=== PATIENT | male | born 1960 | race African-American/Black ===

== ENCOUNTER 2020-06-04 14:29 | Emergency (ER) | payer OTHER, SELFPAY ==
[2020-06-04] VITALS (12 sets, daily range): BP systolic 87–135; BP diastolic 63–82; PULSE 81–91; RESP 15–83; TEMP 36.3; O2SAT 96–98
--- NOTE | ~2020-06-04 | CT_ITS ---
EXAMINATION: CTA brain carotid EXAM DATE: 06/04/2020 16:27 INDICATION: Altered mental status, slurred speech. Left facial and neck pain. TECHNIQUE: Noncontrast head CT. Spiral CTA of the carotid arteries was performed with intravenous i njection 100 cc of Omnipaque 350. Axial, coronal, sagittal reformatted images reviewed. Additional r eformatted images created on dedicated 3-D workstation. NASCET comparable standard used to assess th e degree of arterial stenosis. Spiral CT angiogram cerebral arteries performed with the same intrave nous injection of contrast. Source images of the brain CTA transferred to dedicated workstation for 3 -D rotational image creation. Coronal, sagittal maximum intensity pixel images also reviewed. The d ose-length product (DLP) for this examination was 1887.57 mGy-cm. The exposure was tailored accordi ng to patient size, and iterative reconstruction (ASIR) was used as additional dose reduction techniq ue. Comparison is made to prior examination from 10/10/2015. FINDINGS: There is large amount of right carotid bulb plaque with the lumen narrowed to approximately 1.3 mm, 70% stenosis. On the left there is minimal atherosclerosis with 0% stenosis. Mild bilateral siphon arterial sclerosis. There is left-sided posterior communicating artery dominant posterior cere bral artery. Left vertebral artery is dominant with the right vertebral artery appears to end in post erior inferior cerebellar artery. There is no carotid or vertebral basilar arterial dissection or fi bromuscular dysplasia. There are no cerebral artery aneurysms. 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 The sagittal, transverse and sigmoid sinuses enhance normally, no venous sinus thrombosis. Internal cerebral veins also enhance normally. There is no acute intraparenchymal hemorrhage. No evidence of intraparenchymal brain mass lesion. N o evidence of acute infarction. There is no mass effect or midline shift. There is no obstructive hyd rocephalus suspected. There are no extra-axial collections. There are no calvarial acute fractures. Mild right maxillary sinus mucoperiosteal thickening. Mild to moderate cervical arthropathy. IMPRESSION: 1. No acute carotid or intracranial findings. 2. Right carotid bulb 70% stenosis. 3. Left carotid bulb 0% stenosis. 4. No left facial or cervical abnormality identified. Reviewed, dictated and finalized at [facility]
[2020-06-04 14:43] LABS: Glucose Point of Care 99 (65-105)
--- NOTE | 2020-06-04 14:44 | ECG_ITS ---
Measurements Intervals [place] Rate: 88 P: 35 FL: 180 QRS: -2 QRSD: 78 T: 18 QT: 325 QTc: 394 Interpretive Statements SINUS RHYTHM BORDERLINE T WAVE ABNORMALITY- DIFFUSE LEADS BASELINE ARTIFACT- I, II, III BORDERLINE ECG Electronically Signed On 06-04-2020 15:24:25 [employer] by Warren Faith D.O.
--- NOTE | 2020-06-04 14:44 | ED.GENADULT ---
HPI - General Adult General Chief complaint: Weakness Stated complaint: Confusion, lethargic Time Seen by Provider: 06/04/20 14:35 Source: patient History of Present Illness HPI narrative: Patient is a 60 y/o male complaining of falling asleep and possibly passing out. He states that he left home around 11:00 AM to go to work and he was fine at that time. He felt sleepy and tried to toe puller and called his . His states that he sound confused and his speech sound slurred over the phone. She also states that sometimes he would stopping talking over the phone suggesting possibly becoming unresponsive. He eventually stopped at a gas station. states that she picked him up and brought him to the hospital. She states that he had trouble getting out of the vehicle and walk. He was stumbling. Currently he feels well and his speech is clear. He also has some left sided neck pain when he first woke up this morning. He is on Aspirin and Brilinta for history for stents. Related Data Home Medications Medication Instructions Recorded Confirmed Brilinta 90 mg PO DAILY 06/04/20 06/04/20 amlodipine 5 mg PO DAILY 06/04/20 06/04/20 cetirizine 10 mg PO DAILY 06/04/20 06/04/20 ezetimibe 10 mg PO DAILY 06/04/20 06/04/20 fluticasone furoate 1 mcg INHALATION DAILY 06/04/20 06/04/20 isosorbide mononitrate 30 mg PO DAILY 06/04/20 06/04/20 losartan 50 mg PO DAILY 06/04/20 06/04/20 metoprolol tartrate 06/04/20 pantoprazole 50 mg PO DAILY 06/04/20 06/04/20 phentermine 37.5 mg PO DAILY 06/04/20 06/04/20 Allergies Allergy/AdvReac Type Severity Reaction Status Date / Time No Known Allergies Allergy Unverified 10/29/12 15:50 Review of Systems Constitutional: Constitutional: Denies chills, Denies fever(s), Denies headache(s) and Denies weakness Eyes: Eyes: Denies blurry vision ENT: Denies headache(s) and Denies neck pain Cardiovascular: Cardiovascular: Denies chest pain and Denies dyspnea Respiratory: Respiratory: Denies cough and Denies dyspnea Gastrointestinal: Gastrointestinal: Denies abdominal pain, Denies diarrhea, Denies nausea and Denies vomiting Genitourinary: Genitourinary: Denies hematuria and Denies dysuria Musculoskeletal: Musculoskeletal: Denies back pain and Denies neck pain Neurologic: Reports as per HPI, Reports Abnormal speech present, Reports confusion, Denies headache(s), Reports disequilibrium and Denies weakness Exam Const: General: no acute distress and well developed Orientation/consciousness: oriented to person, oriented to place, oriented to time and patient oriented x3 HENMT: Head: normocephalic Ears: external ears normal General nose exam: Normal external nose present Eyes: General: appearance normal, both eyes and all related structures Conjunctivae: conjunctivae normal Neck: Neck: normal visual inspection and full ROM Chest: Chest palpation & inspection: normal inspection of the chest and no tenderness Resp: Effort & Inspection: normal respiratory effort Auscultation: clear to auscultation bilaterally Cardio: Rate: regular rate Rhythm: regular rhythm GI: GI Palp: No abdominal tenderness and Yes Soft to palpation Skin: General skin exam: normal color and turgor normal Neuro: General: oriented to person, oriented to place, oriented to time and patient oriented x3 Cranial nerves: Yes CN's II-XII intact bilaterally Cognition (Neuro): normal cognition Speech: normal speech Motor exam (neuro): 5/5 motor strength present throughout Sensory Exam: normal sensation Coordination: [id number] test normal and [id number] test normal Extrem: General: normal to inspection, full ROM and no pedal edema Psych: Appearance: grossly normal Mental Status: mental status grossly normal Affect: normal affect Course Consultations Consultation #1: Discussed with Dr. Wright (neurology) at [place], who agrees to transfer the patient to [place]. Date: 06/04/20 Time: 17:30 Vital Signs Vital signs: Vi
[2020-06-04 15:02] LABS: Basophils Percent Auto 0.4 % (0.2-1.2); Eosinophils Absolute Auto 0.1 K/mm3 (0-0.3); Eosinophils Percent Auto 1.3 % (0-4.4); Hematocrit 40.9 % (42.0-52.0); Hemoglobin 14.2 g/dL (14.0-18.0); Immature Granulocyte Absolute 0.04 K/mm3 (0.00-0.031); Immature Granulocyte Percent A 0.4 % (0-0.5); Lymphocytes Absolute Auto 1.73 K/mm3 (0.9-3.2); Mean Corpuscular HGB Conc 34.7 g/dl (32-36); Mean Corpuscular Volume 86.5 fl (80-100); Mean Platelet Volume 11.9 fl (7.4-10.4); Monocytes Absolute Auto 0.7 K/mm3 (0.1-0.6); Monocytes Percent Auto 6.8 % (2.6-8.5); Neutrophils Percent Auto 73.1 % (45.5-73.1); Platelet Count Result 220 k/mm3 (150-375); Red Blood Count 4.73 M/mm3 (4.6-6.20); Red Cell Distribution Width 12.6 % (11.5-14.5); White Blood Count 9.6 K/mm3 (4.5-10.0)
[2020-06-04 15:59] LABS: Alanine Aminotransferase 28 U/L (4-50); Alkaline Phosphatase 66 U/L (38-126); Anion Gap 6 mmol/L (8-16); Aspartate Amino Transferase 31 U/L (17-59); Bilirubin,Total 0.5 mg/dL (0.2-1.3); Blood Urea Nitrogen 14 mg/dL (9-20); Calcium 9.4 mg/dL (8.4-10.2); Carbon Dioxide 28 mmol/L (22-30); Chloride 105 mmol/L (98-107); Estimated CRCL calculation 82 ml/min; Estimated Glomerular Filt Rate > 60; Glucose 91 mg/dL (75-110); Potassium 4.1 mmol/L (3.4-5.0); Sodium 139 mmol/L (137-145)
[2020-06-04 16:11] LABS: Troponin I < 0.012 ng/mL (0.000-0.034)
[2020-06-04 17:28] LABS: Add Urine Microscopic? YES; Appearance Urine Clear (Clear); Bilirubin Urine Negative (Negative); Blood Urine Negative (Negative); Color Urine Yellow (Yellow); Glucose Urine UA Negative (Negative); Ketones Urine Negative (Negative); Leukocyte Esterase Ur Negative LEU/UL (Negative); Mucus Urine Few /lpf; Nitrate Urine Negative (Negative); Protein Urine 1+ mg/dL (Negative); RBC Urine 0-2 /hpf (0-2); Squamous Epithelial Cell Urine Rare /hpf (Few); Urobilinogen Urine Negative mg/dL (<2.0); WBC Urine 0-3 /hpf
--- NOTE | 2020-06-04 18:28 | PC.NURSE ---
Mary from the [facility] at [place] called for triage information. No bed available for pt yet, but will call when there is one. All questions answered.
== END 2020-06-04 21:30 | disposition short-term general hospital (02) ==
LOC: ANHED 14:53
PROVIDERS: Emergency Provider Emergency Medicine; PCP Family Medicine
DX: R41.82 Altered mental status, unspecified (principal); R47.9 Unspecified speech disturbances; I65.21 Occlusion and stenosis of right carotid artery; R94.31 Abnormal electrocardiogram [ECG] [EKG]
CPT/HCPCS: 36415; 70496; 70498; 80053; 81001; 82948; 84484; 85025; 93005; 99285; Q9967

== ENCOUNTER 2021-01-17 20:06 | Emergency (ER) | payer OTHER, SELFPAY ==
[2021-01-17 20:22] VITALS: BP 167/83; PULSE 115; RESP 20; TEMP 35.8; O2SAT 97
--- NOTE | 2021-01-17 21:13 | ED.BACK ---
HPI - Back Pain/Injury General Chief Complaint: Back Pain/Injury Stated Complaint: back pain x 3 weeks Time Seen by Provider: 01/17/21 21:03 Source: RN notes reviewed History of Present Illness HPI Narrative: Patient presents to emergency department from home for lower back pain. Patient states symptoms been ongoing for the past 3 weeks. He states that symptoms began after he used his [employer] home [employer] and then worked with a rodney at work. States pain is looking the bilateral lower back but worse in the right lower back and shoots down into his right buttocks and into his right thigh he denies any direct trauma or injury. Patient denies any fevers or chills abdominal pain nausea vomiting bowel or bladder incontinence numbness or weakness of the extremities or any other symptoms. States he is not taking thing for the pain today. Patient did state he saw his PCP 4 days ago and x-rays were taken that were normal Related Data Home Medications Medication Instructions Recorded Confirmed Brilinta 90 mg PO DAILY 06/04/20 06/04/20 amlodipine 5 mg PO DAILY 06/04/20 06/04/20 cetirizine 10 mg PO DAILY 06/04/20 06/04/20 ezetimibe 10 mg PO DAILY 06/04/20 06/04/20 fluticasone furoate 1 mcg INHALATION DAILY 06/04/20 06/04/20 isosorbide mononitrate 30 mg PO DAILY 06/04/20 06/04/20 losartan 50 mg PO DAILY 06/04/20 06/04/20 metoprolol tartrate 06/04/20 pantoprazole 50 mg PO DAILY 06/04/20 06/04/20 phentermine 37.5 mg PO DAILY 06/04/20 06/04/20 Allergies Allergy/AdvReac Type Severity Reaction Status Date / Time No Known Allergies Allergy Verified 01/17/21 20:26 Review of Systems Review of Systems: Gen.: Denies fevers or chills ENT: Denies congestion Respiratory: Denies shortness of breath or cough CV: Denies chest pain or palpitations GI: Denies abdominal pain nausea, emesis or diarrhea denies bowel or bladder incontinence Musculoskeletal: See HPI Neuro: Denies numbness, tingling, weakness or focal weakness Skin: Denies rash Except as documented, all other systems reviewed and negative PMFSH Past Medical History Medical History (Updated 01/17/21 @ 21:16 by Teddy Cornelius DO) Coronary artery disease Social History Social History (Updated 01/17/21 @ 21:15 by Teddy Cornelius DO) Smoking status: Never smoker Exam Narrative: APPEARANCE: No acute distress, nontoxic, resting in bed Eyes: EOMI HEENT: Normocephalic, atraumatic, CV: Regular rate and rhythm without murmur RESPIRATORY: No respiratory distress. Clear to auscultation bilaterally. Abdomen: Soft and nontender, no rebound or guarding MUSCULOSKELETAl: Moves all extremities, no clubbing cyanosis or edema Back: No midline lumbar tenderness to palpation or step-off, tender to palpation over bilateral paravertebral muscles L3-5 with increased tenderness in right piriformis region, pain increased with forward flexion NEURO: Awake and alert. Following commands, speech normal, no focal deficits, muscle strength 5 out of 5 bilateral lower extremities, bilateral patellar reflex 2+ SKIN:: Warm, dry. Normal Color no rash or lesions Course Course Emergency Course: Discussed with patient results of workup and diagnosis. Discussed need for follow-up with primary care, proper use of medication, and reasons to return to the emergency department. Patient understands and agrees to current treatment plan Vital Signs Vital signs: Vital Signs Temperature 96.5 F L 01/17/21 20:22 Pulse Rate 115 H 01/17/21 20:22 Respiratory Rate 20 01/17/21 20:22 Blood Pressure 167/83 H 01/17/21 20:22 Pulse Oximetry 97 01/17/21 20:22 Temperature 96.5 F L 01/17/21 20:22 Pulse Rate 115 H 01/17/21 20:22 Respiratory Rate 20 01/17/21 20:22 Blood Pressure 167/83 H 01/17/21 20:22 Pulse Oximetry 97 01/17/21 20:22 MDM - Back Pain/Injury MDM Narrative Medical decision making narrative: Patient?s pain is positional and localized to back without signs of cord compression o
[2021-01-17 21:25] VITALS: BP 146/93; PULSE 106; RESP 18; TEMP 37.4; O2SAT 97
[2021-01-17 21:59] VITALS: BP 140/90; PULSE 103; RESP 20; O2SAT 98
[2021-01-17] MEDS: ACETAMINOPHEN 500 MG TABLET 1000 MG PO (22:02)
[2021-01-17] MEDS: predniSONE 20 MG TABLET 60 MG PO (22:02)
--- NOTE | 2021-01-17 22:09 | PC.NURSE ---
Pain medication was administered upon discharge so pain will not be re assessed on this pt.
== END 2021-01-17 22:09 | disposition home or self-care (01) ==
PROVIDERS: Emergency Provider Emergency Medicine; PCP Family Medicine
DX: M54.50 Low back pain, unspecified (principal); I25.10 Atherosclerotic heart disease of native coronary artery without angina pectoris
CPT/HCPCS: 99283; A9270; J7512

== ENCOUNTER 2021-07-12 15:16 | Emergency (ER) | payer OTHER, SELFPAY ==
[2021-07-12 15:26] VITALS: BP 148/90; PULSE 104; RESP 16; TEMP 35.8; O2SAT 99
--- NOTE | 2021-07-12 15:29 | ED.ABDPAIN ---
HPI - Abdominal Pain General Chief Complaint: Abdominal Pain Stated Complaint: ABD PAIN Time Seen by Provider: 07/12/21 16:05 Mode of arrival: ambulatory Limitations: no limitations History of Present Illness HPI narrative: 61-year-old male presents with concern for abdominal pain. He reports symptoms started yesterday with generalized abdominal pain. Reports after he had a bowel movement the pain went away. Reports overnight the pain began again, but was not as bad. Reports today he has had 1 normal bowel movement and one looser bowel movement. He reports nausea without vomiting. He denies constipation or diarrhea. He denies fever, bodies, chills, sweats. Reports he chilli this morning which caused nausea. He reports he took Pepto-Bismol. He reports history of having a cholecystectomy and a hernia repair. He reports 3 months ago he had a work-up with gastroenterology including a colonoscopy that was normal. MD elicited complaint: abdominal pain Related Data Home Medications Medication Instructions Recorded Confirmed losartan 50 mg PO DAILY 06/04/20 07/12/21 metoprolol tartrate 50 mg PO DAILY 06/04/20 07/12/21 phentermine 37.5 mg PO DAILY 06/04/20 07/12/21 cilostazol 100 mg PO DAILY 07/12/21 07/12/21 clopidogrel 75 mg PO DAILY 07/12/21 07/12/21 empagliflozin [Jardiance] 25 mg PO DAILY 07/12/21 07/12/21 methscopolamine 2.5 mg PO DAILY 07/12/21 07/12/21 rosuvastatin 5 mg PO DAILY 07/12/21 07/12/21 semaglutide [Ozempic] 1 mg SUBCUT DAILY 07/12/21 07/12/21 Allergies Allergy/AdvReac Type Severity Reaction Status Date / Time No Known Allergies Allergy Verified 07/12/21 15:48 Review of Systems Review of Systems: CONSTITUTIONAL: Denies malaise, chills, sweats, or fever. ENT: Denies rhinorrhea, congestion, sinus pain, otalgia or sore throat. CARDIOVASCULAR: Denies chest pain, palpitations, or edema. RESPIRATORY: Denies cough or dyspnea. GASTROINTESTINAL: Reports intermittent generalized abdominal pain, nausea. Denies vomiting, diarrhea, bloody, or mucous stools. GENITOURINARY: Denies dysuria or hematuria. MUSCULOSKELETAL: Denies myalgia. All systems reviewed & are unremarkable except as noted in HPI and below PMFSH Past Medical History Medical History (Updated 07/12/21 @ 16:08 by Kelley Leon NP) Coronary artery disease Social History Social History (Updated 01/17/21 @ 21:15 by Teddy Cornelius DO) Smoking status: Never smoker Comments At time of signature, agree with nursing past medical, surgical, social and family history. There is no relevant family history pertinent to the presenting complaint Exam Narrative: GENERAL: Well-appearing, well-nourished, and in no acute distress. HEAD: Normocephalic, atraumatic. EYES: PERRLA, conjunctivae clear, and EOMI. ENT: Nares clear, turbinates pink, no rhinorrhea or epistaxis. Mucous membranes moist. NECK: Supple. No lymphadenopathy CHEST: Speaks in full sentences. No respiratory distress. HEART: Regular rate and rhythm. ABDOMEN: Soft, obese, nondistended. No guarding, rebound tenderness, or rigidity. Mild right upper quadrant tenderness. No pulsatilla masses. Bowel sounds present in all four quadrants. No organomegaly. Negative Hernandez?s sign. No periumbilical tenderness. No Supra public tenderness or distension.No hernia noted. No surface trauma, umbilical hernia scar noted. SKIN: Warm, dry, no rash. NEURO: Alert and oriented x3. PSYCH: Normal mood and affect Course Course Emergency Course: Discussed with patient limited diagnostic capability express care for abdominal pain. Discussed transfer to emergency department for further evaluation versus following up with his primary care doctor for further evaluation. Patient prefers at this time to not go to the emergency room. He understands reasons to go to the emergency room with his symptoms worsen before he can see his primary care doctor. Patient is aware of, understands and agrees to treatment plan.
== END 2021-07-12 16:20 | disposition home or self-care (01) ==
PROVIDERS: Emergency Provider Nurse Practitioner; PCP Family Medicine
DX: R10.84 Generalized abdominal pain (principal); I25.10 Atherosclerotic heart disease of native coronary artery without angina pectoris
CPT/HCPCS: 99213; G0463

== ENCOUNTER 2021-11-01 08:59 | Emergency (ER) | payer OTHER, SELFPAY ==
[2021-11-01 09:16] VITALS: BP 150/88; PULSE 80; RESP 16; TEMP 36.2; O2SAT 100
--- NOTE | 2021-11-01 09:50 | ED.GENADULT ---
HPI - General Adult General Chief complaint: Allergic Reaction Stated complaint: SORE THROAT Time Seen by Provider: 11/01/21 09:52 Source: patient, RN notes reviewed and old records reviewed Mode of arrival: ambulatory Limitations: no limitations History of Present Illness HPI narrative: 61-year-old male who presents to [facility] care with complaints of awakening at 0100 with itching all over. Patient denies any new medication,bath soaps, lotions,laundry soaps, did have a beef jerky yesterday which he never has had before. Patient denies any difficultly with his breathing or any trouble swallowing. Patient has no rash noted on his body, states itching sensation all over. Patient has not taken any OTC medications for his symptoms. MD complaint: itching all over Onset (ago): hour(s) (0100 today) Treatments prior to arrival: none Related Data Home Medications Medication Instructions Recorded Confirmed losartan 50 mg tablet 50 mg PO DAILY 06/04/20 11/01/21 metoprolol tartrate 50 mg tablet 50 mg PO DAILY 06/04/20 11/01/21 phentermine 37.5 mg tablet 37.5 mg PO DAILY 06/04/20 11/01/21 cilostazol 100 mg tablet 100 mg PO DAILY 07/12/21 11/01/21 clopidogrel 75 mg tablet 75 mg PO DAILY 07/12/21 11/01/21 empagliflozin 25 mg tablet 25 mg PO DAILY 07/12/21 11/01/21 (Jardiance) methscopolamine 2.5 mg tablet 2.5 mg PO DAILY 07/12/21 11/01/21 rosuvastatin 5 mg tablet 5 mg PO DAILY 07/12/21 11/01/21 semaglutide 1 mg/dose (4 mg/3 mL) 1 mg subcut DAILY 07/12/21 11/01/21 subcutaneous pen injector (Ozempic) Allergies Allergy/AdvReac Type Severity Reaction Status Date / Time No Known Allergies Allergy Verified 11/01/21 10:05 Review of Systems Review of Systems: CONSTITUTIONAL: Denies fever, chills, or sweats. EYES: Denies visual changes, redness, or discharge. ENT: Denies rhinorrhea, congestion, sore throat, or otalgia. CARDIOVASCULAR: Denies chest pain, palpitations, or edema. RESPIRATORY: Denies cough or dyspnea. GASTROINTESTINAL Denies abdominal pain, nausea, vomiting, or diarrhea. GENITOURINARY: Denies dysuria or hematuria. SKIN: Denies rash positive for itching all over body. MUSCULOSKELETAL: Denies back pain, joint pain, or myalgia. NEUROLOGIC: Denies headache, numbness, or weakness. PSYCHIATRIC: Denies anxiety or depression. All systems reviewed & are unremarkable except as noted in HPI and below PMFSH Past Medical History Medical History (Updated 11/03/21 @ 13:28 by Oriana Velasquez NP) Coronary artery disease Diabetes Hyperlipidemia Hypertension Surgical History Surgical History (Updated 11/03/21 @ 13:31 by Oriana Velasquez NP) H/O heart artery stent X3 H/O inguinal hernia repair H/O umbilical hernia repair History of cholecystectomy History of hip replacement S/P ACL repair Social History Social History (Updated 11/03/21 @ 13:28 by Oriana Velasquez NP) Smoking status: Former smoker Additional smoking assessment comments: quit 13 years ago Comments At time of signature, agree with nursing past medical, surgical, social and family history. There is no relevant family history pertinent to the presenting complaint Exam Narrative: GENERAL: Well-appearing, well-nourished, and in no acute distress. HEAD: Normocephalic, atraumatic. EYES: PERRLA and EOMI. ENT: Nares clear, no rhinorrhea or epistaxis. Mucous membranes moist.TM's normal with good light reflex, throat pink with no lesions exudates or tonsil swelling NECK: Supple. no lymphadenopathy CHEST: Clear to auscultation. No respiratory distress.SAO2 100% on room air, no tachypnea HEART: Regular rate and rhythm. No murmur heard. Normal peripheral pulses. ABDOMEN: Soft, nontender, nondistended, normal active bowel sounds. EXTREMITIES: Normal range of motion. No edema. SKIN: Warm, dry, no rash. itching sensation all over body NEURO: No focal deficits. Alert and oriented x3. Course Course Level of Care: Express Care Visit Vital Signs Vital signs:
== END 2021-11-01 10:22 | disposition home or self-care (01) ==
PROVIDERS: Emergency Provider Registered Nurse; PCP Family Medicine
DX: L29.9 Pruritus, unspecified (principal); T78.40XA Allergy, unspecified, initial encounter; I25.10 Atherosclerotic heart disease of native coronary artery without angina pectoris; E11.9 Type 2 diabetes mellitus without complications; E78.5 Hyperlipidemia, unspecified; I10 Essential (primary) hypertension; Z87.891 Personal history of nicotine dependence
CPT/HCPCS: 99213; G0463

== ENCOUNTER 2022-10-23 02:14 | Emergency (ER) | payer OTHER, SELFPAY ==
--- NOTE | ~2022-10-23 | CT_ITS ---
Noncontrast CT scan of the cervical spine Technique: Multiple contiguous axial [address] images of the cervical spine were obtained and rec onstructed in 2D sagittal and coronal planes on the acquisition scanner. Dose reduction technique was used on this scan by utilizing automated exposure control, adjustment of the mA and/or kV according to patient size. The dose-length product (DLP) was 583.54 mGy-cm. Clinical History: Pain Findings: No fractures or dislocations. There is moderate degenerative change at the articulation of the odontoid process with the anterior arch of C1. There is mild degenerative disc change at C5-C6. There is straightening of the normal cervical lordosis. No prevertebral soft tissue swelling. Impression: No fracture or subluxation of the cervical spine. Mild degenerative spondylosis overall, as above. Reviewed, dictated and finalized at [facility]. Impression: No fracture or subluxation of the cervical spine. Mild degenerative spondylosis overall, as above.
--- NOTE | ~2022-10-23 | XR_ITS ---
XR wrist LT min 3V DATE: 10/23/2022 08:22 INDICATION: Pain and limited range of motion after fall. 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 No fracture or dislocation, periosteal reaction or bone destruction. IMPRESSION: No fracture or dislocation Reviewed, dictated and finalized at location [facility]. IMPRESSION: No fracture or dislocation
--- NOTE | ~2022-10-23 | CT_ITS ---
EXAMINATION: CT brain wo con DATE: 10/23/2022 08:28 INDICATION: Fall. TECHNIQUE: Computed tomography (CT) of the head was performed without intravenous contrast. The mA wa s adjusted according to patient size. Iterative reconstruction technique was employed. The dose-lengt h product was 681.00 mGy-cm. COMPARISON: Head CT 06/04/2020 FINDINGS: There is an old lacunar infarct involving the left basal ganglia and anterior limb left int ernal capsule. There are scattered areas of low attenuation in the cerebral white matter, which is wi thin normal limits for the patient's age. There is no intracranial hemorrhage, acute infarction, or a bnormal intracranial mass lesion. The ventricles are normal in size. There is mild mucosal thickening in right maxillary sinus. The orbits are normal. The mastoid air cells are normal. IMPRESSION: 1. Old lacunar infarct involving the left basal ganglia and anterior limb left internal capsule. Reviewed, dictated and finalized at location [facility].
--- NOTE | ~2022-10-23 | XR_ITS ---
EXAMINATION: XR elbow LT min 3V DATE: 10/23/2022 08:22 INDICATION: Left elbow pain. Fall. TECHNIQUE: 4 views of left elbow were obtained. COMPARISON: None. FINDINGS: Bone alignment is normal. No fracture. There is mild elbow joint osteoarthritis characteriz ed by tiny osteophytes. There is an enthesophyte at olecranon. No elbow joint effusion. IMPRESSION: 1. No fracture. Reviewed, dictated and finalized at location [facility]. IMPRESSION: 1. No fracture.
--- NOTE | ~2022-10-23 | CT_ITS ---
EXAMINATION: CT chest abdomen pelvis wo con DATE: 10/23/2022 08:29 INDICATION: Fall. TECHNIQUE: Computed tomography (CT) of the chest, abdomen, and pelvis was performed without intraveno us contrast. Automated exposure control and iterative reconstruction technique were employed. The dos e-length product was 1865.17 mGy-cm. COMPARISON: None FINDINGS: CHEST CT: The lungs demonstrate mild atelectasis. No pleural effusion. The heart size is normal. There are brice nary artery calcifications. No pericardial effusion. There is mild thoracic spondylosis. ABDOMEN/PELVIS CT: There is diffuse hepatic steatosis. There are changes of cholecystectomy. The spleen, pancreas, adren al glands, and kidneys are normal. There is no urolithiasis. There are changes of ventral hernia repa ir. There are no dilated loops of bowel. The appendix demonstrates a diameter of 11 mm and contains s tool and gas without signs of inflammation, likely normal. There is calcified atherosclerosis of the aorta and many of the other arteries. There are no pathologically enlarged lymph nodes. There is no f ree intraperitoneal fluid. There is a total right hip arthroplasty. There is mild lumbar spondylosis. IMPRESSION: 1. No posttraumatic findings. Reviewed, dictated and finalized at location A.
--- NOTE | ~2022-10-23 | XR_ITS ---
EXAMINATION: XR shoulder LT min 2V DATE: 10/23/2022 08:22 INDICATION: Left shoulder pain. Fall. TECHNIQUE: 4 views of left shoulder were obtained. COMPARISON: None. FINDINGS: Bone alignment is normal. No fracture. There is mild osteoarthritis of glenohumeral joint a nd acromioclavicular joint. There is mild calcific tendinitis of the rotator cuff. IMPRESSION: 1. Mild polyarticular osteoarthritis. 2. Mild calcific tendinitis of the rotator cuff. Reviewed, dictated and finalized at location [facility].
== END 2022-10-23 05:05 | disposition home or self-care (01) ==
PROVIDERS: Emergency Provider Emergency Medicine; PCP Family Medicine
DX: S09.90XA Unspecified injury of head, initial encounter (principal); S16.1XXA Strain of muscle, fascia and tendon at neck level, initial encounter; S40.012A Contusion of left shoulder, initial encounter; S50.02XA Contusion of left elbow, initial encounter; S20.212A Contusion of left front wall of thorax, initial encounter; S40.212A Abrasion of left shoulder, initial encounter; I11.9 Hypertensive heart disease without heart failure; W17.89XA Other fall from one level to another, initial encounter
CPT/HCPCS: 70450; 71250; 72125; 73030; 73080; 73110; 74176; 99284

== ENCOUNTER 2023-04-05 21:22 | Emergency (ER) | payer OTHER, SELFPAY ==
--- NOTE | ~2023-04-05 | CT_ITS ---
Clinical Indication: Back pain, hypertension CT Scan of the Chest, Abdomen, and Pelvis with Contrast: Technique: Contiguous sections were acquired throughout the chest, abdomen, and pelvis after intraven ous administration of 100 cc of Omnipaque 350. Dose reduction technique was used on this scan by reagan montelongo automated exposure control and iterative reconstruction technique. The dose-length product (DL P) was 1610.84 mGy-cm. COMPARISON: 10/23/2022 Findings: There is no evidence of any significant mediastinal, hilar or axillary lymphadenopathy. The mediastin al soft tissues appear normal. No pulmonary embolus. No aortic aneurysm or dissection. There is no evidence of pleural or pericardial effusion. The lungs are clear. No pulmonary nodules or infiltrates are noted. The liver, spleen, pancreas, adrenals and kidneys are within normal limits. Cholecystectomy clips are present. There are atherosclerotic calcifications of the aorta. No abdominal aortic aneurysm or diss ection. No lymphadenopathy. No bowel obstruction or bowel wall thickening. No abscess or free air. There There is streak artifact in the pelvis from right hip arthroplasty. Urinary bladder unremarkable. No pelvic mass evident. No ascites. Impression: No acute abnormality evident. Reviewed, dictated and finalized at location . [facility] GYNECOLOGIST Impression: No acute abnormality evident.
[2023-04-05 21:37] VITALS: BP 210/109; PULSE 96; RESP 17; TEMP 36.5; O2SAT 98
[2023-04-05 23:00] VITALS: O2SAT 94
--- NOTE | 2023-04-05 23:00 | PC.NURSE ---
Assumed care of pt. at this time. Report from REJI Peralta
[2023-04-05 23:01] VITALS: BP 196/108; O2SAT 96
--- NOTE | 2023-04-05 23:15 | PC.NURSE ---
gave report and care to REJI Uriarte. all questions answered.
--- NOTE | 2023-04-05 23:19 | ED.BACK ---
HPI - Back Pain/Injury General Chief Complaint: Back Pain/Injury <Jennifer Pham PA-C - Last Filed: 04/07/23 02:13> Stated Complaint: back pain <Jennifer Pham PA-C - Last Filed: 04/07/23 02:13> Time Seen by Provider: 04/05/23 22:40 <Jennifer Pham PA-C - Last Filed: 04/07/23 02:13> History of Present Illness HPI Narrative: 63-year-old male with history of CAD, hypertension, hyperlipidemia, diabetes, chronic back pain reports for evaluation for acute or chronic back pain. Patient head injury in October of 2022 where he tripped stepping out of a big truck and landed on his back. He was evaluated by his primary care and started physical therapy without relief. He then had an MRI of his lumbar spine a few weeks ago by his PCP which showed bulging discs at L3 and L4. States he has been referred to Neurosurgery and Orthopedic surgery and has been prescribed Lyrica and gabapentin. He is not taking the Lyrica because he feels it interacts with his hypertensive medications. He has been taking gabapentin without relief. His PCP prescribed him ibuprofen which has relieved his pain somewhat. Patient states he has fallen 3 times because of this pain, states that causes him to buckle over. He states last night he got up to go to the bathroom around 2:00 a.m. when he felt a sharp pain in his mid back which caused him to fall to his knees. He states he landed on his knees, denied his head or lose consciousness. He denies saddle anesthesia, radiating pain down his legs, loss of bowel or bladder control or retention, or extremity weakness. He states the back pain is in his mid back and extends down to his low back, is worse with movement and standing. He denies dysuria, hematuria, Abdominal pain, chest pain or shortness of breath. he is found to be hypertensive upon arrival. He states he has been taking his medications as prescribed his blood pressure is usually controlled. <Jennifer Pham PA-C - Last Filed: 04/07/23 02:13> Related Data Home Medications: Home Medications Medication Instructions Recorded Confirmed losartan 50 mg tablet 50 mg PO DAILY 06/04/20 11/01/21 metoprolol tartrate 50 mg tablet 50 mg PO DAILY 06/04/20 11/01/21 phentermine 37.5 mg tablet 37.5 mg PO DAILY 06/04/20 11/01/21 cilostazol 100 mg tablet 100 mg PO DAILY 07/12/21 11/01/21 clopidogrel 75 mg tablet 75 mg PO DAILY 07/12/21 11/01/21 empagliflozin 25 mg tablet 25 mg PO DAILY 07/12/21 11/01/21 (Jardiance) methscopolamine 2.5 mg tablet 2.5 mg PO DAILY 07/12/21 11/01/21 rosuvastatin 5 mg tablet 5 mg PO DAILY 07/12/21 11/01/21 semaglutide 1 mg/dose (4 mg/3 mL) 1 mg subcut DAILY 07/12/21 11/01/21 subcutaneous pen injector (Ozempic) <Jennifer Pham PA-C - Last Filed: 04/07/23 02:13> Allergies/Adverse Reactions: Allergies Allergy/AdvReac Type Severity Reaction Status Date / Time No Known Allergies Allergy Verified 04/05/23 23:48 <Jennifer Pham PA-C - Last Filed: 04/07/23 02:13> Review of Systems Review of Systems: CONSTITUTIONAL: Denies fever, chills, or sweats. EYES: Denies visual changes, redness, or discharge. ENT: Denies rhinorrhea, congestion, sore throat, or otalgia. CARDIOVASCULAR: Denies chest pain, palpitations, or edema. RESPIRATORY: Denies cough or dyspnea. GASTROINTESTINAL: Denies abdominal pain, nausea, vomiting, or diarrhea. GENITOURINARY: Denies dysuria or hematuria. SKIN: Denies rash or itching. MUSCULOSKELETAL: see HPI NEUROLOGIC: Denies headache, numbness, or weakness. PSYCHIATRIC: Denies anxiety or depression. <Jennifer Pham PA-C - Last Filed: 04/07/23 02:13> PMF Past Medical History Medical History: Medical History Coronary artery disease Diabetes Hyperlipidemia Hypertension <Jennifer Pham PA-C - Last Filed: 04/07/23 02:13> Surgical History Surgical History: Surgical History (Revie
--- NOTE | 2023-04-05 23:27 | ECG_ITS ---
Measurements Intervals [place] Rate: 86 P: 47 [place]: 164 QRS: -13 QRSD: 90 T: 54 QT: 333 QTc: 400 Interpretive Statements SINUS RHYTHM NONSPECIFIC T-WAVE ABNORMALITY- INF/LAT LEADS BASELINE ARTIFACT- I, II, AVR, AVL, AVF BORDERLINE ECG COMPARED TO ECG 06/04/2020 14:37:59 NO SIGNIFICANT CHANGES Electronically Signed On 04-06-2023 7:31:07 [employer] by Warren Faith D.O.
[2023-04-05 23:32] VITALS: BP 164/88; PULSE 100; RESP 14; O2SAT 100
[2023-04-05] MEDS: HYDROmorphone HCL INJ (*CRX) 1 MG/ML SYR IV PUSH (23:48)
[2023-04-05] MEDS: CYCLOBENZAPRINE HCL 10 MG TABLET PO (23:48)
[2023-04-05 23:51] VITALS: O2SAT 98
[2023-04-05 23:52] VITALS: BP 171/80; PULSE 90; RESP 14; O2SAT 98
[2023-04-05 23:57] LABS: Basophils Percent Auto 0.5 % (0.2-1.2); Eosinophils Absolute Auto 0.2 K/mm3 (0-0.3); Eosinophils Percent Auto 2.8 % (0-4.4); Hemoglobin 16.1 g/dL (14.0-18.0); Immature Granulocyte Absolute 0.01 K/mm3 (0.00-0.031); Immature Granulocyte Percent A 0.1 % (0-0.5); Lymphocytes Absolute Auto 2.76 K/mm3 (0.9-3.2); Lymphocytes Percent Auto 33.5 % (18.3-44.2); Mean Corpuscular HGB Conc 32.9 g/dl (32-36); Mean Corpuscular Hemoglobin 27.2 pg (26-34); Mean Corpuscular Volume 82.9 fl (80-100); Mean Platelet Volume 11.1 fl (7.4-10.4); Monocytes Absolute Auto 0.7 K/mm3 (0.1-0.6); Neutrophils Absolute Auto 4.5 K/mm3 (1.3-6.7); Neutrophils Percent Auto 54.1 % (45.5-73.1); Platelet Count Result 204 k/mm3 (150-375); Red Blood Count 5.91 M/mm3 (4.6-6.20); Red Cell Distribution Width 12.8 % (11.5-14.5); White Blood Count 8.2 K/mm3 (4.5-10.0)
[2023-04-06] VITALS (25 sets, daily range): BP systolic 139–184; BP diastolic 72–103; PULSE 71–98; RESP 14–15; O2SAT 95–100
[2023-04-06 00:04] LABS: Alanine Aminotransferase 26 U/L (6-50); Albumin Level 4.4 g/dL (3.5-5.1); Alkaline Phosphatase 64 U/L (38-126); Anion Gap 8 mmol/L (8-16); Aspartate Amino Transferase 30 U/L (17-59); Bilirubin,Total 0.7 mg/dL (0.2-1.3); Blood Urea Nitrogen 12 mg/dL (9-20); Calcium 9.2 mg/dL (8.4-10.2); Carbon Dioxide 26 mmol/L (22-30); Chloride 105 mmol/L (98-107); Estimated CRCL calculation 89 ml/min; Estimated Glomerular Filt Rate > 60; Glucose 91 mg/dL (65-110); Potassium 4.3 mmol/L (3.4-5.0); Sodium 139 mmol/L (137-145)
[2023-04-06 00:06] LABS: Partial Thromboplastin Time 26.5 SECONDS (22.3-36.8); Prothrombin Time 13.1 Seconds (11.1-14.7)
[2023-04-06 00:16] LABS: Troponin I 0.016 ng/mL (0.000-0.034)
[2023-04-06 01:03] LABS: Appearance Urine Clear (Clear); Bilirubin Urine Negative (Negative); Blood Urine Negative (Negative); Color Urine Yellow (Yellow); Glucose Urine UA Negative (Negative); Ketones Urine Negative (Negative); Leukocyte Esterase Ur Negative LEU/UL (Negative); Nitrate Urine Negative (Negative); Protein Urine Negative (Negative); Urobilinogen Urine 0.2 mg/dL (<2.0)
[2023-04-06 01:04] LABS: Add Urine Microscopic? NO
[2023-04-06 01:12] LABS: Specific Grav Ur 1.015 (1.001-1.035)
[2023-04-06 02:01] LABS: NT Pro B Type Natriuretic Pept 28 pg/mL (19.9-100)
--- NOTE | 2023-04-06 02:49 | ECG_ITS ---
Measurements Intervals [place] Rate: 77 P: 48 DE: 180 QRS: 0 QRSD: 89 T: 31 QT: 355 QTc: 402 Interpretive Statements SINUS RHYTHM NONSPECIFIC T-WAVE ABNORMALITY- INF/LAT LEADS BORDERLINE ECG COMPARED TO ECG 04/05/2023 23:58:37 NO SIGNIFICANT CHANGES Electronically Signed On 04-06-2023 7:32:01 IMPORT/EXPORT SPECIALIST by Warren Faith D.O.
[2023-04-06 03:19] LABS: Troponin I 0.014 ng/mL (0.000-0.034)
[2023-04-06 06:34] LABS: Troponin I 0.022 ng/mL (0.000-0.034)
== END 2023-04-06 06:10 | disposition home or self-care (01) ==
PROVIDERS: Emergency Provider Physician Assistant; PCP Family Medicine
DX: M54.6 Pain in thoracic spine (principal); M54.50 Low back pain, unspecified; G89.29 Other chronic pain; I25.10 Atherosclerotic heart disease of native coronary artery without angina pectoris; I10 Essential (primary) hypertension; E78.5 Hyperlipidemia, unspecified; E11.9 Type 2 diabetes mellitus without complications; Z95.5 Presence of coronary angioplasty implant and graft; Z96.649 Presence of unspecified artificial hip joint; Z90.49 Acquired absence of other specified parts of digestive tract; Z79.85 Long-term (current) use of injectable non-insulin antidiabetic drugs; Z79.84 Long term (current) use of oral hypoglycemic drugs; R94.31 Abnormal electrocardiogram [ECG] [EKG]
CPT/HCPCS: 36415; 71275; 74174; 80053; 81003; 83880; 84484; 85025; 85610; 85730; 93005; 96374; 99284; A9270; J1170; Q9967

== ENCOUNTER 2025-02-12 10:37 | Outpatient (CLI) | payer OTHER, SELFPAY ==
--- NOTE | ~2025-02-12 | MMUS_ITS ---
EXAMINATION: MM diagnostic cami LT w ilya, US breast LT limited HISTORY: Left breast pain. Palpable abnormality. TECHNIQUE: Additional 3-D tomosynthesis images of the breasts were performed and synthetic 2-D images were generated. CAD analysis was submitted and interpreted. High resolution Limited left breast ultrasound was performed. COMPARISON: None BREAST PARENCHYMAL COMPOSITION: Not dense: There are scattered areas of fibroglandular density. FINDINGS: MAMMOGRAPHIC FINDINGS: There is bilateral asymmetric gynecomastia. No suspicious masses, calcifications or architectural distortion are identified in either breast to suggest malignancy. ULTRASOUND: Limited left breast ultrasound: Normal heterogeneous echotexture present without suspicious mass. There is prominent breast but in the subareolar location left breast, consistent with gynecomastia. IMPRESSION: 1. No evidence for malignancy in either breast. Bilateral asymmetric gynecomastia. 2. Recommend clinical management for gynecomastia. BI-RADS Category 2: Benign finding(s). Reviewed, dictated and finalized at location B. NESS ANALYST PROJECT MANAGER IMPRESSION: 1. No evidence for malignancy in either breast. Bilateral asymmetric gynecomast ia. 2. Recommend clinical management for gynecomastia. BI-RADS Category 2: Benign finding(s).
--- OUTSIDE RECORDS SUMMARY | 2025-02-12 11:23 | XMS_ITS | Clinical Summary ---
Author Organization [facility] Address [address] [place] [address] Care Team Providers Care Locker Room Attendant Name Role Phone Margot Werner MD Primary Care Provider [phone] Source Comments [facility],non-owned Affiliates and Associated Physician Practices is amultiple site organization consisting of ambulatory clinics and hospital sitesin [place], [place], [place] and [place]. This disclosure is being madepursuant to the Care Everywhere program and may not contain all information available regarding this patient. Last updated 17.[facility] Allergies No known active allergies Medications * Be aware that medications may not be up to date on this document. Alwaysverify current medications with the patient. hydrochlorothia zide (HYDRODIURIL) 25 MG tablet Take 25 mg by mouth once daily. Active lisinopril (PRINIVIL; ZESTRIL) 40 MG tablet Take 40 mg by mouth every morning. Active metoprolol succinate XL 24hr (TOPROL XL) 25 MG tablet Take 25 mg by mouth every morning. Active clopidogrel (PLAVIX) 75 MG tablet Take 75 mg by mouth once daily. Active ranitidine (ZANTAC) 150 MG capsule Take 150 mg by mouth. Active hyoscyamine (LEVSIN) 0.125 MG tabletIndicatio ns:Irritable Bowel Syndrome Take 0.125 mg by mouth 2 times daily. Indications: Irritable Bowel Syndrome Active multivitamin daily (THERAGRAN) tablet Take 1 Tab by mouth daily with food. Jose mens mvi from [facility] Active ibuprofen (MOTRIN) 200 MG tablet Take 400 mg by mouth every 6 hours as needed. Active nitroglycerin (NITROSTAT) 0.4 MG tablet Dissolve 0.4 mg under the tongue every 5 minutes as needed. Active hydrocodone-harika taminophen (NORCO) 5-325 MG tablet Take 1-2 Tabs by mouth every 4 hours as needed. 78 Tab 0 3 Active oxyCODONE CR 12hr (OXYCONTIN) 20 MG tablet Take 1 Tab by mouth every 12 hours. 28 Tab 0 3 Active Active Problems No known active problems Social History Tobacco Use Types Packs/Day Years Used Date Smoking Tobacco: Former Cigarettes Q uit: 05/18/2011 Smokeless Tobacco: Never Tobacco Cessation:Counseling Given: Yes Alcohol Use Standard Drinks/Week Comments Yes 1.7 (1 standard drink = 0.6 oz p ure alcohol) Sex and Gender Information Value Date Recorded Sex Assigned at Not on file Legal Sex Male 6:05 PM [employer] Gender Identity Not on file Sexual Orientation Not on file Last Filed Vital Signs Vital Sign Reading Time Taken Comments Blood Pressure 116/69 04/08/2012 9:25 AM [employer] Pulse 126 04/08/2012 9:25 AM [employer] Temperature 37 C (98.6 F) 04/08/2012 9:25 AM [employer] Respiratory Rate 18 04/08/2012 9:25 AM [employer] Oxygen Saturation 93% 04/08/2012 9:25 AM [employer] Inhaled Oxygen Concentration - - Weight 105.7 kg (233 lb) 04/06/2012 7:30 AM [employer] Height 175.3 cm (5' 9) 04/06/2012 7:30 AM [employer] Body Mass Index 34.41 04/06/2012 7:30 AM [employer] Plan of Treatment Health Maintenance Due Date Last Done Comments COLOGUARD (AGES 45-75) - COL ON CA SCREENING 1959 COLON MONITORING 1959 COLONOSCOPY - COLON CA SCREENING 1959 CT COLONOGRAPHY - COLON CA SCREENING 1959 Colorectal Cancer Screening 1959 FIT - COLON CA SCREENING 1959 FLEX SIG - COLON CA SCREENING 1959 HEPATITIS C SCREENING 01/05/1977 DTAP/TDAP/TD VACCINES (1 - Tdap) 1978 PNEUMOCOCCAL VACCINE 50+ (1 of 1 - PCV) 2009 ZOSTER VACCINE (1 of 2) 2009 AAA SCREENING 01/11/2024 DEPRESSION SCREENING 04/05/2024 COVID-19 VACCINE (2023-2 5 season) 2024 INFLUENZA VACCINE (#1) 2024 Respiratory Syncytial Virus (RSV) Vaccine Pt: or over 60 yrs (1 - 1-dose 75+ series) 2034 HEPATITIS B VACCINE Aged Out No longe r eligible based on patient's age to complete this topic HIB VACCINE Aged Out No longer eligi ble based on patient's age to complete this topic HPV VACCINE Aged Out No longer eligi ble based on patient's age to complete this topic MENINGOCOCCAL (Group B) VACC INE SHARED DECISION-MAKING Aged Out No longer eligibl e based on patient's age to complete this topic MENINGOCOCCAL GROUPS A/C/Y/W VACCINE Aged Out No longer eligible b ased on patient's age to complete this topic Medical Devices Implanted Type Area Gauge Operator Device Identifier Shelf Expiration Date Model / Serial / Lot Ringloc Acetabular Shell 58mm Implanted:Qty: 1 on 04/06/2012 by Den Gilliland MD at [facility] Right: [employer] 01/03/2022 [id number] / / [id number] Scrw Selftap Lo Prof Ti 6.5 X 20mm Implanted:Qty: 1 on 04/06/2012 by Den Gilliland MD at [facility] Right: [employer] 06/03/2021 [id number] / / [id number] Ringloc Acetabular Liner Implanted:Qty: 1 on 04/06/2012 by Den Gilliland MD at [facility] Right: [employer] 10/03/2016 [id number] / / [id number] Collarless Porous Stem Implanted:Qty: 1 on 04/06/2012 by Den Gilliland MD at [facility] Right: [employer] 07/05/2019 [id number] / / [id number] Magnum Modular Head Implanted:Qty: 1 on 04/06/2012 by Den Gilliland MD at [facility] Right: [employer] 02/03/2022 [id number] / / [id number] Insurance [facility] Advance Directives * FULL RESUSCITATION (Latest Code Status on File) Date Activated Date Inactivated Comments 04/06/2012 5:16 PM 04/08/2012 4:19 PM Care Teams Locker Room Attendant Relationship Specialty Start Date End Date Margot Werner MD [address] [place] [phone] PCP - General 04/06/12
--- OUTSIDE RECORDS SUMMARY | 2025-02-12 11:23 | XMS_ITS | Clinical Summary ---
Author Organization [facility] Address [address] [place] [id number] Care Team Providers Care [employer] Sales Representative Name Role Phone Yves Zavala MD Primary Care Provider [phone] Cliff Love MD Unavailable [phone] Allergies Active Allergy Reactions Criticality Noted Date Comments Atorvastatin Muscle pain Medium 12/22/2015 Pravastatin Muscle pain Medium 12/22/2015 Rosuvastatin Muscle pain Medium 12/22/2015 Medications phentermine (ADIPEX-P) 37.5 mg tablet Take 1 tablet (37.5 mg total) by mouth daily before breakfast 05/07/19 20 Active empagliflozin (JARDIANCE) 25 mg tablet Take 1 tablet (25 mg total) by mouth hack saw operator before breakfast Active insulin glargine (LANTUS) 100 unit/mL (3 mL) pen for injection Inject 10 Units under the skin hack saw operator before breakfast 01/28/20 22 Active losartan (COZAAR) 100 mg tablet Take 1 tablet (100 mg total) by mouth hack saw operator before breakfast 03/09/20 23 Active metoprolol (LOPRESSOR) 100 mg tablet Take 1 tablet (100 mg total) by mouth 2 (two) times a day 04/28/19 24 Active hydroCHLOROthi azide (HYDRODIURIL) 25 mg tablet Take 1 tablet (25 mg total) by mouth hack saw operator before breakfast 04/28/19 24 Active rosuvastatin (CRESTOR) 5 mg tablet Take 0.5 tablets (2.5 mg total) by mouth nightly 08/23/19 24 Active Ozempic 2 mg/dose (8 mg/3 mL) pen injector injection Inject 2 mg under the skin once a week wednesday08/31/19 24 Active cholecalcifero l (VITAMIN D-3) 50,000 unit capsule Take 1 capsule (50,000 Units total) by mouth once a week wednesday09/06/19 24 Active clopidogreL (PLAVIX) 75 mg tabletIndicati ons:Thrombosis Prevention after PCI Take 1 tablet (75 mg total) by mouth hack saw operator before breakfast Please do not resume taking until 12/31/23 (POD7) per MD Maldonado. 12/31/19 24 Active acetaminophen 500 mg capsuleIndicat ions:Pain,Pain Take 2 capsules (1,000 mg total) by mouth every 6 (six) hours as needed for pain 12/27/19 24 Active Additional Information Patient not taking.Reported on 09/29/2024 bisacodyl EC (DULCOLAX EC) 5 mg EC tabletIndicati ons:constipati on Take 2 tablets (10 mg total) by mouth daily as needed for constipation 30 tablet 12/27/19 24 Active methscopolamin e (PAMINE) 2.5 mg tablet TAKE 1 TABLET BY MOUTH 4 TIMES DAILY 30 MINUTES BEFORE MEALS AND AT BEDTIME 12/05/19 24 Active nortriptyline (PAMELOR) 25 mg capsule Take 1 capsule (25 mg total) by mouth daily 12/09/19 24 Active spironolactone (ALDACTONE) 25 mg tablet 05/02/19 25 Active meloxicam (MOBIC) 15 mg tablet Take 1 tablet (15 mg total) by mouth daily 30 tablet 1 05/17/19 25 026 Active pitavastatin calcium (LIVALO) 2 mg tablet Take 1 tablet (2 mg total) by mouth daily 07/14/19 25 Active Ozempic 1 mg/dose (4 mg/3 mL) pen injector injection INJECT 1 MG SUBCUTANEOUSLY ONCE A WEEK 06/30/19 25 Active Repatha Syringe syringe syringe INJECT 1 SYRINGE SUBCUTANEOUSLY EVERY 14 DAYS 01/03/20 25 Active ibuprofen (ADVIL,MOTRIN) 800 mg tablet Take 1 tablet (800 mg total) by mouth every 8 (eight) hours as needed 12/12/19 25 Active Xifaxan 550 mg tablet Take 1 tablet (550 mg total) by mouth 3 (three) times a day 11/07/19 25 Active syringe with needle (BD Luer-Vahe Syringe) 3 mL 21 gauge x 1 1/2 syringe 1 (one) Misc as needed for 0 days 11/05/19 23 Active aspirin-caffei ne 845-65 mg powder in packet Take 1 packet by mouth daily as needed (pain) B-C powder 025 Discontin ued(Patie nt Reported) Active Problems Problem Noted Date Diagnosed Date S/P lumbar spinal fusion 12/24/2023 Lumbar degenerative disc disease 11/08/2023 Atherosclerotic heart diseas e of [place] coronary artery without angina pectoris 03/22/2023 Overview (03/22/2023): [facility] 02/08/18 Severe one-vessel [place] coronary artery disease involving a chronic total occlusion of the right coronary artery that fills via left to right collaterals. Last Assessment & Plan: Recommend nuclear stress test to evaluate his chest pain symptoms. Continue Plavix, metoprolol, rosuvastatin and Repatha. Essential hypertension 03/22/2023 Overview (03/22/2023): Last Assessment & Plan: Blood pressure is significantly elevated today likely from pain. He has missed some doses of medications. Encouraged home blood pressure monitoring. Continue current antihypertensive regimen. No changes made to antihypertensive therapy. Mid back pain 02/12/2023 Cervical strain 10/26/2022 Stage 2 chronic kidney disease 07/13/2022 Erectile dysfunction 02/10/2022 Lumbar radiculopathy 01/14/2021 Carotid stenosis, asymptomatic, right 01/09/2021 Peripheral arterial disease 12/16/2020 Overview (03/22/2023): Last Assessment & Plan: He has abnormal HELEN. His claudication symptoms have improved. Continue cilostazol, clopidogrel, Repatha and rosuvastatin. 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 His triglycerides are elevated. Continue Zetia and Vascepa. He is not tolerant of statins. I encouraged lifestyle modifications including diet and exercise. 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 Mixed hyperlipidemia 05/01/2019 Shortness of breath 05/01/2019 Coronary artery disease involving [place] coronar y artery 04/17/2019 NSTEMI (non-ST elevated myocardial infarction) 0 04/17/2019 Class 2 obesity in adult 04/17/2019 Coronary artery disease invo lving [place] coronary artery of [place] heart with unstable angina pectoris 04/16/2019 Overview (04/17/2019): Added automatically from request for surgery [id number] Muscle spasms of both lower extremities 01/04/20 Coronary artery chronic total occlusion 09/10/19 Overview (03/22/2023): Last Assessment & Plan: Has known total occlusion of right coronary artery. Had ischemic eval in September 2022 that was within normal limits. Continue beta-zana therapy. Closed fracture of middle ph alanx of lesser toe of right foot 10/20/2017 GERD (gastroesophageal reflux disease) 8 Tension type headache 12/22/2016 Type 2 diabetes mellitus wit h hyperglycemia, without long-term current use of insulin 09/16/2016 Type 2 diabetes mellitus without complication Overview (03/22/2023): Transitioned From: Elevated fasting glucose Allergic rhinitis 06/09/2016 Adjustment disorder with anxiety 11/27/2015 Insomnia 11/25/2015 Neck pain 11/25/2015 Hypertension 02/15/2015 Splitting of urinary stream 12/21/2014 Poor urinary stream 12/21/2014 Enlarged prostate with lower urinary tract sympt oms (LUTS) 12/17/2014 Irritable bowel syndrome 05/29/2014 Dysmetabolic syndrome X 02/12/2014 Vitamin D deficiency 2014 Essential hypertriglyceridemia 01/04/2014 Hypogonadism, testicular 01/04/2014 PABLO (obstructive sleep apnea) 01/04/2014 Plantar fasciitis 01/04/2014 Renal insufficiency syndrome 01/04/2014 Arteriosclerotic cardiovascular disease (ASCVD) 01/04/2014 Mixed hyperlipidemia 01/04/2014 Overview (03/22/2023): Last Assessment & Plan: His LDL is at goal, but his triglycerides are elevated. Continue Repatha and rosuvastatin. Encounters Date Type Department Care Team Description 02/05/2025 7:09 AM AUTO TECHNICIAN MECHANIC - 02/05/2025 11:59 PM AUTO TECHNICIAN MECHANIC Hospital Encounter [facility] [address] [place] [id number] Kashmir Miranda MD Lumbar radiculopathy (Primary Dx) Discharge Disposition: Discharge to home or self care 01/24/2025 Orders Only [facility] Medicine Orthopaedic Surgery [address] [place] [address] José Miguel Maldonado MD Lumbar radiculopathy (Primary Dx) 01/16/2025 Telephone [facility] Orthopaedic Surgery [address] [place] [address] Caterina Valdez Sheron 01/15/2025 8:47 AM CDT - 01/15/2025 11:59 PM CDT Hospital Encounter [facility] [id number] [place] [address] History of spinal fusion Discharge Disposition: Discharge to home or self care 01/15/2025 8:10 AM CDT Office Visit [facility] Orthopaedic Surgery [id number] [place] [address] 2nd Floor [address] [place] [address] José Miguel Maldonado MD History of spinal fusion (Primary Dx) 01/08/2025 Telephone [facility] Orthopaedic Surgery [address] [facility] [facility] 2[address] [place] [phone] José Miguel Maldonado MD 12/21/2024 9:40 AM CDT Lab [facility] ([facility]) [address] [place] [phone] 12/07/2024 Telephone [facility] Medicine Orthopaedic Surgery [address] [place] [address] José Miguel Maldonado MD from Last 3 Months Immunizations Immunization Administration Dates Next Due Influenza, Quadrivalent, Spl it, Preservative Free, Intramuscular 12/23/2021,12/16/2020,12/18/2019,01/03,2018,12/22/2016,01/17/2016 Influenza, Trivalent, IM (MDV) 12/28/2012 Influenza, Unspecified 01/29/2020 Pfizer SARS-CoV-2 Monovalent Vaccination (12+ Yrs) PURPLE 12/23/2021 Tdap 07/13/2022 Surgical History Surgery Date Site/Laterality Comments [place] CHOLECYSTECTOMY Cholecystectomy - (Added by TW Conv) TOTAL HIP ARTHROPLASTY Hip Replacement - (Added by TW Conv) [place] UNLISTED PROCEDURE ABDOME N PERITONEUM & OMENTUM Hernia Repair - (Added by TW Conv) ANGIO SELECTIVE CAROTID PIN MACHINE TENDER LEFT 05/26/2021 Left FL UPPER GI AIR CONTRAST W KUB 05/06/2023 Bilateral SPINAL FUSION 12/24/2023 N/A L L3-5 XLIF, L3-4 PSF/I Dr. José Miguel Maldonado TRANSFORAMINAL EPIDURAL INJECTION LUMBAR SACRAL 1 LEVEL LEFT 02/05/2025 Left Medical History Medical History Date Comments Acute coronary thrombosis no t resulting in myocardial infarction (HCC) Blockage of coronary arter y of heart - (Added by TW Conv) Hypertension Angina pectoris Erectile dysfunction Visual impairment Back pain Diabetes mellitus Hyperlipidemia Sleep apnea wears cpap CAD (coronary artery disease) Carotid stenosis, right Family History Medical History Relation Name Comments Prostate cancer Brother 1 Family histo ry of malignant neoplasm of prostate - (Added by TW Conv) Lupus Brother 2 Family history of systemic lupus erythematosus - (Added by TW Conv) Heart disease Father Multiple myeloma Mother Family hist ory of multiple myeloma - (Added by TW Conv) Anesthesia problems Neg Hx Malig Hyperthermia Neg Hx Pseudochol deficiency Neg Hx Relation Name Status Comments Brother 1 Brother 2 Father Mother Social History Tobacco Use Types Packs/Day Years Used Date Smoking Tobacco: Former Cigarettes 2 10 1 999 - 2009 Smokeless Tobacco: Never Tobacco Cessation:Counseling Given: Not Answered Alcohol Use Standard Drinks/Week Comments No 0 (1 standard drink = 0.6 oz pur e alcohol) AUDIT-C Answer Date Recorded Q1: How often do you have a drink containing alcohol? Never 09/29/2024 Q2: How many drinks containi ng alcohol do you have on a typical day when you are drinking? Patient does not drink Q3: How often do you have si x or more drinks on one occasion? Never 09/29/2024 PHQ-2 Answer Date Recorded PHQ-2 Total Score (If total score is 3 or more points, staff should administer the PHQ-9) 0 06/05/2020 Personal Safety Answer Date Recorded Have you ever been in or are you currently in a harmful physical or emotional relationship or is someone making you feel afraid or unsafe? 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 Not on file Not on file Last Filed Vital Signs Vital Sign Reading Time Taken Comments Blood Pressure 139/85 02/05/2025 9:26 AM AUTO TECHNICIAN MECHANIC Pulse 88 02/05/2025 9:26 AM AUTO TECHNICIAN MECHANIC Temperature 36.6 C (97.9 F) 12/27/2023 3:21 PM CDT Respiratory Rate 17 12/27/2023 7:35 AM CDT Oxygen Saturation 97% 12/27/2023 3:21 PM CDT Inhaled Oxygen Concentration - - Weight 104.3 kg (230 lb) 01/15/2025 9:07 AM CDT Height 175.3 cm (5' 9) 01/15/2025 9:07 AM CDT Body Mass Index 33.97 01/15/2025 9:07 AM CDT Plan of Treatment Health Maintenance Due Date Last Done Comments Colon Cancer Screening-Colonoscopy 1959 Hepatitis C Screening 1959 Dilated Eye Exam 1959 Foot Exam 1959 Hepatitis B Screening 1977 Pneumococcal vaccine 65+ (1 of 2 - PCV) 1978 Zoster Vaccine (1 of 2) 2009 Prostate Cancer Screening-PSA 03/27/2021 03/27/2019, 03/21/2018 Depression Screening 06/04/2021 06/04/2020 Abdominal Aortic Aneurysm (A AA) Screen 01/11/2024 08/26/2020 Well Visit 65+ 01/11/2024 Covid-19 Vaccine (2 - 2024-2 6 season) 2024 12/23/2021 Influenza Vaccine (#1) 2024 2, 12/16/2020, 01/29/2020, Additional history exists Fall Risk Assessment 12/26/2024 12/27/2023 Hemoglobin A1C 06/20/2025 12/21/2024, 06/04, 12/03/2023, Additional history exists Albumin Creatinine Ratio, Urine 12/21/2025 , 06/30/2024 Lipid Panel 12/21/2025 12/21/2024, 07/0 05/2024, 06/30/2024, Additional history exists eGFR 12/21/2025 12/21/2024, 07/0 05/2024, 06/30/2024, Additional history exists DTaP/Tdap/Td Vaccine (2 - Td or Tdap) 07/13/2032 07/13/2022 Medical Devices Implanted Type Area Clinical Abstractor Device Identifier Shelf Expiration Date Model / Serial / Lot Stent Implanted:Qty: 1 Stent Chest Description:2x stent in hear t. 2009 - [place], [place] [employer] [id number] Synergy 3mm 16mm 144cm Radiopaque 1 Access Port Inflation Lumen - [id number] - [id number] Implanted:Qty: 1 on 04/17/2019 by Jean Vigil MD at [facility] Stent [employer] 01/18/2021 [id number] / [id number] / [id number] Description:[place] [employer] [id number] Synergy 3mm 20mm 144cm Radiopaque 1 Access Port Inflation Lumen - [id number] - [id number] Implanted:Qty: 1 on 04/17/2019 by Jean iVgil MD at [facility] Stent [employer] 12/11/2020 [id number] / [id number] / [id number] Description:prox 1st obtuse marginal Hip Replacements Implanted:04/06 (Quantity not on file) Bilateral : Hip [employer] Creo Mis 5.5mm 65mm Curve Kraig Spinal Titanium 1134.7065 - [id number] Implanted:Qty: 1 on 12/24/2023 by José Miguel Maldonado MD at [facility] Left: Spine Lumbar [employer] 1134.7065 / / [employer] Creo 6.5mm 50mm Cannulated Modular Spine Screw Bone 1067.4650 - [id number] Implanted:Qty: 4 on 12/24/2023 by José Miguel Maldonado MD at [facility] Left: Spine Lumbar [employer] 1067.4650 / / [employer] 1134.001 Creo Spinal Cap Locking Nonsterile Mis - [id number] Implanted:Qty: 4 on 12/24/2023 by José Miguel Maldonado MD at [facility] Left: Spine Lumbar [employer] 1134.0010 / / [employer] 1134.01 Creo Mis 30mm Modular Polyaxial Tulip Head Screw Bone - [id number] Implanted:Qty: 4 on 12/24/2023 by José Miguel Maldonado MD at [facility] Left: Spine Lumbar [employer] 1134.0100 / / [employer] Bmp Infuse Sm [id number] - [id number] Implanted:Qty: 1 on 12/24/2023 by José Miguel Maldonado MD at [facility] Left: Spine Lumbar [employer] [id number] 12/04/2024 [id number] / / [id number] [employer] Allograft Bone Putty 2.5cc 700-025 - [id number] Implanted:Qty: 1 on 12/24/2023 by José Miguel Maldonado MD at [facility] Left: Spine Lumbar [employer] [id number] 05/05/2026 700-025 / / [id number] [employer] Cage Spinal Lumbar Dlif Expandable Rise L [id number] Titanium 193.406 - [id number] Implanted:Qty: 1 on 12/24/2023 by José Miguel Maldonado MD at [facility] Left: Spine Lumbar [employer] 193.406 / / [employer] 1134.706 Creo Mis 5.5mm 60mm Curve Kraig Spinal Titanium - [id number] Implanted:Qty: 1 on 12/24/2023 by José Miguel Maldonado MD at [facility] Left: Spine Lumbar [employer] 1134.7060 / / Explanted Type Area Clinical Abstractor Device Identifier Shelf Expiration Date Model / Serial / Lot [employer] Rhea Thread Blunt Tip Wire Fixation 6133.0399s - [id number] Explanted:Qty: 1 on 12/24/2023 by José Miguel Maldonado MD at [facility] Left: Spine Lumbar [employer] 6133.0399S / / Procedures Procedure Name Priority Date/Time Associated Diagnosis Comments TRANSFORAMINAL EPIDURAL INJECTION LUMBAR SACRAL 1 LEVEL LEFT Schedule Routine, Read Routine (OP Routine) 02/05/2025 9:21 AM AUTO TECHNICIAN MECHANIC Lumbar radiculopathy XR LUMBAR SPINE AP LAT FLEX EX Schedule Routine, Read Routine (OP Routine) 01/15/2025 8:56 AM CDT History of spinal fusion CHOLESTEROL, LDL, DIRECT Routine 12/21/2024 9:29 AM CDT EGFR Routine 12/21/2024 9:29 AM CDT ALBUMIN CREATININE RATIO, URINE Routine 12/21/2024 9:29 AM CDT HEMOGLOBIN A1C Routine 12/21/2024 9:29 AM CDT LIPID PANEL Routine 12/21/2024 9:29 AM CDT BASIC METABOLIC PANEL Routine 12/21/2024 9:29 AM CDT PSA SCREEN Routine 03/27/2019 12:00 PM AUTO TECHNICIAN MECHANIC Prostate disorder from Last 3 Months or Most Recently Relevant to Health Maintenance Results * IR Transforaminal Epidural Injection Lumbar Sacral 1 Level Left (02/05/2025 9:21 AM AUTO TECHNICIAN MECHANIC) Narrative [facility] - 02/05/2025 9:21 AM AUTO TECHNICIAN MECHANIC The images from this study are not interpreted by Radiology. Please refer to the physician's procedure / OR operative note. Procedure Note Madiha Davis, RT - 02/05/2025 The images from this study are not interpreted by Radiology. Please referto the physician's procedure / OR operative note. us José Miguel Maldonado MD IMG IR PROCEDURES Final Result [facility] * XR Spine Lumbar Ap Lat Flex Ext min 4 Views (01/15/2025 8:56 AM CDT) Anatomical Region Laterality Modality L-spine N/A Computed Radiogr aphy 01/15/2025 9:07 AM CDT Impressions 01/15/2025 9:07 AM CDT 1. Unchanged combined posterior and interbody instrumented fusion of L3-L4. Electronically signed by: Terell tOt MD Narrative 01/15/2025 9:07 AM CDT EXAMINATION: XR SPINE LUMBAR AP LAT FLEX EXT MIN 4 VIEWS HISTORY: low back pain COMPARISON: 09/01/2024 FINDINGS: Unchanged combined posterior and interbody fusion of L3-L4. Hardware is intact. Multilevel degenerative changes including including degenerative disc disease and facet osteoarthritis noted throughout the lumbar spine, greatest and mild at L4-L5. No acute compression fracture. There is progressive now moderate facet arthropathy from L5-S1. There is no motion of the fused segments with flexion or extension. Cholecystectomy clips, right hip arthroplasty, and hernia repair are noted.. Procedure Note Terell Ott MD - 01/15/2025 EXAMINATION: XR SPINE LUMBAR AP LAT FLEX EXT MIN 4 VIEWS HISTORY: low back pain COMPARISON: 09/01/2024 FINDINGS: Unchanged combined posterior and interbody fusion of L3-L4. Hardware is intact. Multilevel degenerative changes including including degenerative disc disease and facet osteoarthritis noted throughout the lumbar spine, greatest and mild at L4-L5. No acute compression fracture. There is progressive now moderate facet arthropathy from L5-S1. There is no motion of the fused segments with flexion or extension. Cholecystectomy clips, right hip arthroplasty, and hernia repair are noted.. IMPRESSION: 1. Unchanged combined posterior and interbody instrumented fusion of L3-L4. Electronically signed by: Terell Ott MD us José Miguel Maldonado MD IMG XR PROCEDURES Final Result * eGFR (12/21/2024 9:29 AM CDT) eGFR 71 >=60 mL/min/1. 73 m2 Comment: Interpretive Data Reference Interval Normal >/= 90 mL/min/1.73m2 Mildly decreased* 60 - 89 mL/min/1.73m2 Mildly to moderately decreased 45 - 59 mL/min/1.73m2 Moderately to severely decreased 30 - 44 mL/min/1.73m2 Severely decreased 15 - 29 mL/min/1.73m2 Kidney Failure < 15 mL/min/1.73m2 *Relative to young adult level Estimated glomerular filtration rate is determined by the 2020 CKD-EPI equation recommended by the National Kidney Foundation (A Unifying Approach to GFR Estimation: Recommendations of the NKF-ASK Task Force on Reassessing the Inclusion of Race in Diagnosing Kidney Disease, JASN 202). The CKD-EPI equation should not be used for patients with unstable renal function and has not been validated in children and those over 70. Current interpretive data was last reviewed 2021. Blood 12/21/2024 9:29 AM CDT 12/21/2024 10:10 AM CDT us Jose Zavala MD LAB BLOOD ORDERABLES Final R esult [facility] Department [place] [address] * (ABNORMAL) Albumin Creatinine Ratio, Urine (12/21/2024 9:29 AM CDT) Albumin Ur 58.7 mg/L Comment: Interpretive Data No reference range established. Current interpretive data was last revised 2018. Creatinine Ur 138.0 mg/dL [facility] Comment: Interpretive Data No reference range established. Current interpretive data was last revised 2018. Albumin Creatinine Ratio, Ur 43(H) 1 - 29 mg/g [facility] Urine 12/21/2024 9:29 AM CDT 12/21/2024 10:17 AM CDT us Jose Zavala MD LAB URINE ORDERABLES Final R esult [facility] Department [place] [address] * Cholesterol, LDL, direct (12/21/2024 9:29 AM CDT) LDL Cholesterol, Direct 85 <=129 mg/dL Comment: Interpretive Data Ages < or = 19 years Acceptable: <110 mg/dL Borderline high: 110-129 mg/dL High: >or= 130 mg/dL Ages > or = 20 years Optimal: <100 mg/dL Near optimal: 100-129 mg/dL Borderline high: 130-159 mg/dL High: >160 mg/dL Literature References: 1. Expert Panel on Integrated Guidelines for Cardiovascular Health and Risk Reduction in Children and Adolescents. Pediatrics 2011;128:S213 2. NCEP Expert Panel. Circulation 2004;110:227 Current Interpretive Data was last revised on 2017. Blood 12/21/2024 9:29 AM CDT 12/21/2024 10:10 AM CDT Narrative [facility] - 12/21/2024 1:02 PM CDT Cholesterol, LDL, direct reflexed based on Elevated Triglyceride (>400) us Jose Zavala MD LAB BLOOD ORDERABLES Final R esult Performing Organization Address [facility] de Phone Number [facility] Department [place] [address] * (ABNORMAL) Hemoglobin A1c (12/21/2024 9:29 AM CDT) Hgb A1C 7.3(H) 4.0 - 5.6 % Estimated Average Glucose 163 mg/dL [facility] Comment: The ADA recommends reporting an estimated Average Glucose (eAG) with all Hemoglobin A1c results using the equation derived from a study of 507 normal and diabetic adults. Minority populations were underrepresented and children were not included. (Diabetes Care 2020; 43(S1): S66-S76). The eAG is not equivalent to a fasting glucose. Blood 12/21/2024 9:29 AM CDT 12/21/2024 10:06 AM CDT Jose Zavala MD LAB BLOOD ORDERABLES Final R esult Performing Organization Address [facility] Co de Phone Number [facility] Department [place] [address] * (ABNORMAL) Lipid panel (12/21/2024 9:29 AM CDT) Cholesterol 196 30 - 199 mg/dL Comment: Interpretive Data Ages < or = 19 years Acceptable: <170 mg/dL Borderline high: 170-199 mg/dL High: >or= 200 mg/dL Ages > or = 20 years Desirable: <200 mg/dL Borderline high: 200-239 mg/dL High: >or= 240 mg/dL Literature References: 1. Expert Panel on Integrated Guidelines for Cardiovascular Health and Risk Reduction in Children and Adolescents. Pediatrics 2011;128:S213 2. NCEP Expert Panel. Circulation 2004;110:227 Current Interpretive Data was last revised on 2017. Triglycerides 583(H) <=149 mg/dL [facility] Comment: Interpretive Data Ages < or = 9 years Acceptable: <75 mg/dL Borderline high: 75-99 mg/dL High: >or= 100 mg/dL Ages 10 to 20 years Acceptable: <90 mg/dL Borderline high: 90-129 mg/dL High: >or= 130 mg/dL Ages > or = 20 years Desirable: <150 mg/dL Borderline high: 150-199 mg/dL High: 200-499 mg/dL Very high: >or= 499 mg/dL Literature References: 1. Expert Panel on Integrated Guidelines for Cardiovascular Health and Risk Reduction in Children and Adolescents. Pediatrics 2011;128:S213 2. NCEP Expert Panel. Circulation 2004;110:227 Current Interpretive Data was last revised on 2017. HDL 31(L) >=40 mg/dL [facility] Comment: Interpretive Data Ages < or = 19 years Acceptable: >45 mg/dL Borderline low: 40-45 mg/dL Low: <40 mg/dL Ages > or = 20 years Desirable: >or= 60 mg/dL Low: <40 mg/dL Literature References: 1. Expert Panel on Integrated Guidelines for Cardiovascular Health and Risk Reduction in Children and Adolescents. Pediatrics 2011;128:S213 2. NCEP Expert Panel. Circulation 2004;110:227 Current Interpretive Data was last revised on 2017. LDL, calculated See Comment <=129 [facility] Comment: Unable to calculate LDL due to elevated triglyceride. Interpretive Data Ages < or = 19 years Acceptable: <110 mg/dL Borderline high: 110-129 mg/dL High: >or= 130 mg/dL Ages > or = 20 years Optimal: <100 mg/dL Near optimal: 100-129 mg/dL Borderline high: 130-159 mg/dL High: >160 mg/dL Calculated using the Sanchez LDL-C estimating equation. This equation was implemented on 2023. Prior to this date LDL-C was estimated using the Friedewald equation. Literature References: 1. Expert Panel on Integrated Guidelines for Cardiovascular Health and Risk Reduction in Children and Adolescents. Pediatrics 2011;128:S213 2. NCEP Expert Panel. Circulation 2004;110:227 3. Sanchez Barajas al. ESTER Cardiol. 2020 August 03;5(5):540-548. doi: 10.1001/[email or web address].2020.0013 Current Interpretive Data was last revised on 2023. Non-HDL Cholesterol 165 mg/dL [facility] Comment: Interpretive Data Ages < or = 19 years Acceptable: <120 mg/dL Borderline high: 120-144 mg/dL High: >145 mg/dL Ages > or = 20 years When triglycerides are >200 mg/dL, Non-HDL cholesterol is a secondary target of therapy with treatment goals that are 30 mg/dL greater than the LDL cholesterol target. Literature References: 1. Expert Panel on Integrated Guidelines for Cardiovascular Health and Risk Reduction in Children and Adolescents. Pediatrics 2011;128:S213 2. NCEP Expert Panel. Circulation 2004;110:227 Current Interpretive Data was last revised on 2017. Chol/HDL ratio 6 [facility] Blood 12/21/2024 9:29 AM CDT 12/21/2024 10:03 AM CDT us Jose Zavala MD LAB BLOOD ORDERABLES Final R esult [facility] Department [place] [address] * Basic metabolic panel (12/21/2024 9:29 AM CDT) Sodium 140 135 - 145 mmol/L Potassium, pl 4.5 3.3 - 4.9 mmol/L [facility] Comment:Hemolyzed; Potassium value may be falsely elevated by as much as 0.6-1.0 mmol/L. Suggest redraw and reanalysis. Chloride 101 97 - 110 mmol/L [facility] CO2 25 22 - 32 mmol/L [facility] Anion gap 14 2 - 15 mmol/L [facility] BUN 13 6 - 25 mg/dL [facility] Creatinine 1.14 0.80 - 1.30 mg/dL [facility] Glucose 129 70 - 199 mg/dL [facility] Comment: Interpretive Data Fasting glucose >/= 126 mg/dl is diagnostic for diabetes. Fasting is defined as no caloric intake for at least 8 hours. Fasting glucose between 100 mg/dl to 125 mg/dl is diagnostic of prediabetes. In a patient with classic symptoms of hyperglycemia or hyperglycemic crisis, a random glucose >/= 200 mg/dl is diagnostic for diabetes. In the absence of unequivocal hyperglycemia, results should be confirmed by repeat testing. The classification and Diagnosis of Diabetes Diabetes Care 2021; 46: S19-S40. Current interpretive data was last revised 2022. Calcium 9.6 8.5 - 10.3 mg/dL [facility] Blood 12/21/2024 9:29 AM CDT 12/21/2024 10:03 AM CDT Jose Zavala MD LAB BLOOD ORDERABLES Final R esult Performing Organization Address City/[facility] Co de Phone Number [facility] Department [place] [address] * PSA screen (03/27/2019 12:00 PM AUTO TECHNICIAN MECHANIC) PSA-Total 0.79 <=5.40 ng/mL [facility] Comment: Interpretive Data AGE SEX REFERENCE INTERVAL 0 minutes-150 years Female None 0 minutes-49 years Male None 50-59 years Male 0-3.90 60-69 years Male 0-5.40 70-79 years Male 0-6.20 80-150 years Male 0-6.20 Current interpretive data last revised 2017. Testing performed by: [facility], [address] [place] [address], [place]., [address] Blood specimen (specimen) 03/27/2019 12:00 PM AUTO TECHNICIAN MECHANIC 03/27/2019 1:54 PM AUTO TECHNICIAN MECHANIC us Isaias Naidu MD LAB BLOOD ORDERABLES Fin al Result Performing Organization Address City/[facility] Co de Phone Number [facility] [address] [facility]. Department [place] [address] from Last 3 Months or Most Recently Relevant to Health Maintenance Insurance [facility] CHOICE PLUS MEDICARE [facility] CHOICE PLUS WORKERS COMPENSATION GENERIC [employer] WORKERS COMPENSATION GENERIC Advance Directives For more information, please contact: [phone] * Full Code (Latest Code Status on File) Date Activated Date Inactivated Comments 12/24/2023 4:33 PM 12/27/2023 9:26 PM * Full Code Date Activated Date Inactivated Comments 06/04/2020 11:13 PM 06/06/2020 4:16 PM * Full Code Date Activated Date Inactivated Comments 04/17/2019 2:55 AM 04/19/2019 12:56 AM Care Teams [employer] Sales Representative Relationship Specialty Start Date End Date Yves Zavala MD [address] [address] PCP - General Family Medicine 01/13/18 Cliff Love MD [address] [address] Consulting Physician Gastroenterology 07/06/23
== END 2025-02-12 10:38 | disposition home or self-care (01) ==
LOC: ANHFOHIMG 10:39
PROVIDERS: PCP Family Medicine; Visit Provider Family Medicine
DX: N62 Hypertrophy of breast (principal)
CPT/HCPCS: 76642; 77061; 77065; G0279